=== PATIENT | female | born 1975 | race Caucasian/White ===

== ENCOUNTER 2020-12-23 21:52 | Emergency (ER) | payer OTHER ==
[~2020-12-23] VITALS: Ht 162.6 cm; Wt 86.2 kg
[2020-12-23] MEDS ORDERED: LEVO-T25 MCG PO (22:08)
[2020-12-23 22:22] LABS: ABSOLUTE EOSINOPHILS 0.2 thou/uL (0.0-0.7); ABSOLUTE LYMPHOCYTES 5.5 thou/uL (0.8-5.3); ABSOLUTE MONOCYTES 0.7 thou/uL (0.0-1.2); ABSOLUTE NEUTROPHILS 8.3 thou/uL (1.6-8.1); BASOPHILS 0.2 %; EOSINOPHILS 1.1 %; HEMATOCRIT 47.3 % (37.0-47.0); HEMOGLOBIN 16.4 gm/dL (12.0-15.0); LYMPHOCYTES 37.5 %; MCH 32.2 pg (26.0-34.0); MCHC 34.8 g/dL (28.0-37.0); MCV 92.7 fL (80.0-100.0); MONOCYTES 5.1 %; MPV 9.9 fl. (7.2-11.1); NUCLEATED RBCS 0 /100WBC; PLATELET COUNT* 289 thou/uL (150-400); POLYS 56.1 %; RDW-CV 12.9 % (10.5-14.5); WBC 14.7 thou/uL (4.0-11.0)
[2020-12-23 22:29] LABS: CALCIUM 8.9 mg/dL (8.5-10.1); CREATININE 1.2 mg/dL (0.6-1.3); POTASSIUM 3.4 mmol/L (3.5-5.1)
[2020-12-23 22:44] LABS: ALBUMIN 3.9 g/dL (3.4-5.0); MAGNESIUM 1.8 mg/dL (1.8-2.4); TOTAL BILIRUBIN 0.3 mg/dL (<0.1-1.0); TOTAL PROTEIN 7.6 g/dL (6.4-8.2)
[2020-12-23 23:58] LABS: URINE BILIRUBIN NEGATIVE (Negative); URINE BLOOD NEGATIVE (Negative); URINE CLARITY CLEAR; URINE COLOR YELLOW; URINE GLUCOSE-RANDOM NEGATIVE (Negative); URINE KETONES NEGATIVE (Negative); URINE LEUKOCYTES-REFLEX NEGATIVE (Negative); URINE NITRITE-REFLEX NEGATIVE (Negative); URINE PROTEIN NEGATIVE (Negative); URINE UROBILINOGEN 0.2 E.U./dl (0.2-1.0)
[2020-12-24 00:04] LABS: AMP/METHAMP Negative (Negative); BARBITURATES Negative (Negative); BENZODIAZEPINES Negative (Negative); COCAINE Negative (Negative); METHADONE Negative (Negative); OPIATES Negative (Negative); PCP Negative (Negative); THC Negative (Negative)
[2020-12-24] MEDS ORDERED: MEDROLDOSEPACK PO (02:42)
[2020-12-24] MEDS ORDERED: HYDROCODON-ACE1 EAC8 PO (02:42)
[2020-12-24] MEDS ORDERED: PROAIR HFA8.5 GM INH (02:42)
[2020-12-24 03:00] VITALS: BP 112/76
--- NOTE | 2020-12-24 10:35 | EKG ---
[place] [address] ELECTROCARDIOGRAM REPORT Name: JEROMY PAECE Room: [facility]#: [id number] Admission: 12/23/20 Attend Phys: Discharge: 12/24/20 Date of : 79 Date of Service: 12/23/202153 Report #: [id number] THIS REPORT FOR: //name// [facility] ED Test Date: 2020-12-23 Test Time: 21:54:25 Pat Name: JEROMY PEACE Department: Room: Gender: Outreach Manager: [place] : 1975 Requested By: Mindy Raymond Order Number: [id number] MD: Vijay Sanders Measurements Intervals [place] Rate: 119 P: 49 [place]: 130 QRS: 63 QRSD: 98 T: QT: 333 QTc: 469 Interpretive Statements Sinus tachycardia Borderline repolarization abnormality Baseline wander in lead(s) II,III,aVR,aVL,aVF,V2,V3,V4,V5,V6 No previous ECG available for comparison Electronically Signed On 12-24-2020 10:35:36 CDT by Vijay Sanders [email or web address] <ELECTRONICALLY SIGNED> By: Vijay Sanders MD, [facility] 12/24/20 1035 [id number] Vijay Sanders MD, [facility] /EPI
== END 2020-12-24 03:01 | disposition home or self-care (01) ==
LOC: M.ERS 21:52
PROVIDERS: Emergency Medicine
DX: R07.89 Other chest pain (principal); Z20.822 Contact with and (suspected) exposure to COVID-19; R06.02 Shortness of breath; R00.0 Tachycardia, unspecified; R05 Cough; E03.9 Hypothyroidism, unspecified; F17.210 Nicotine dependence, cigarettes, uncomplicated; Z98.890 Other specified postprocedural states; Z90.49 Acquired absence of other specified parts of digestive tract; Z87.442 Personal history of urinary calculi; Z79.899 Other long term (current) drug therapy; Z88.2 Allergy status to sulfonamides; Z88.8 Allergy status to other drugs, medicaments and biological substances